=== PATIENT | female | born 1980 | race Caucasian/White ===

== ENCOUNTER 2018-07-22 12:31 | Emergency (ER) | payer MEDICAID ==
[~2018-07-22] VITALS: Ht 170.2 cm; Wt 87.1 kg
[2018-07-22 12:40] VITALS: Ht 170.2 cm; Wt 87.1 kg
[2018-07-22 14:42] VITALS: BP 145/76
== END 2018-07-22 14:42 | disposition home or self-care (01) ==
LOC: ED 12:31
DX: J40 Bronchitis, not specified as acute or chronic (principal)

== ENCOUNTER 2018-09-20 12:12 | Emergency (ER) | payer MEDICAID ==
[~2018-09-20] VITALS: Ht 170.2 cm; Wt 85.4 kg
[2018-09-20 12:19] VITALS: Ht 170.2 cm; Wt 85.4 kg
[2018-09-20 14:26] VITALS: BP 105/66
== END 2018-09-20 14:26 | disposition home or self-care (01) ==
LOC: ED 12:12
DX: B34.9 Viral infection, unspecified (principal)